=== PATIENT | female | born 1985 | race Caucasian/White ===

== ENCOUNTER 2020-05-22 11:24 | Emergency (ER) | payer OTHER ==
[~2020-05-22] VITALS: Ht 162.6 cm; Wt 86.0 kg
[2020-05-22 11:30] VITALS: BP 150/90
[2020-05-22] MEDS ORDERED: MUPI22OI2 TP (12:20)
[2020-05-22] MEDS ORDERED: SULF1TAB24 PO (12:20)
--- NOTE | 2020-05-22 12:21 | ED.ADGEN ---
Past Medical History Past Medical History: No Pertinent History Past Surgical History: Other Additional Past Surgical Histo: D&C, WIDSOM TEETH Smoking Status: Never Smoker Alcohol Use: Occasionally General Adult EDM: Chief Complaint: ABSCESS HPI: HPI: Patient is a 35 year old female, who presents to the emergency department with complaints of an abscess to the left side of her chin for the last 3 days. Patient denies any drainage or bleeding from the site. She denies any fevers. Patient also denies any dental pain, she states that her chin becomes more marybeth nful if she talks. She currently rates the pain a 10 out of 10 on the pain scale, she denies any alleviating factors, pain is also worse with palpation. Review of Systems: Review of Systems: Complete ROS is negative unless otherwise noted in HPI. Allergies: Allergies: Allergies Coded Allergies Type Severity Reaction Last Updated Verified No Known Drug Allergies 05/22/20 No Physical Exam: PE: See Above Constitutional: Well developed, well nourished, no acute distress, non-toxic appearance. [] HENT: Normocephalic, atraumatic, bilateral external ears normal, nose normal. [] Eyes: PERRLA, EOMI, conjunctiva normal, no discharge. [] Neck: Normal range of motion, no stridor. [] Cardiovascular:Heart rate regular rhythm Lungs & Thorax: Respirations even and unlabored, no retractions, no respiratory distress Skin: Warm, dry; 2 cm diameter nonfluctuant, tender, erythemic warm area consistent with a facial abscess/cellulitis noted to the left side of the patient's chin Extremities: No cyanosis, ROM intact, no edema. [] Neurologic: Alert and oriented X 3, no focal deficits noted. [] Psychologic: Affect normal, judgement normal, mood normal. [] Current Patient Data: Vital Signs: Vital Signs Date Time Temp Pulse Resp B/P (MAP) Pulse Ox O2 Delivery O2 Flow Rate FiO2 05/22/20 11:30 98.7 115 16 150/90 (110) 97 Room Air 98.7 EKG: EKG: [] Heart Score: Risk Factors: Risk Factors: DM, Current or recent (<one month) smoker, HTN, HLP, family history of CAD, obesity. Risk Scores: Score 0 - 3: 2.5% MACE over next 6 weeks - Discharge Home Score 4 - 6: 20.3% MACE over next 6 weeks - Admit for Clinical Observation Score 7 - 10: 72.7% MACE over next 6 weeks - Early Invasive Strategies Radiology/Procedures: Radiology/Procedures: [] Course & Med Decision Making: Course & Med Decision Making Pertinent Labs and Imaging studies reviewed. (See chart for details) [] Laura Disclaimer: Laura Disclaimer: This electronic medical record was generated, in whole or in part, using a voice recognition dictation system. Departure Departure Impression: Primary Impression: Abscess or cellulitis of chin Disposition: 01 DC HOME SELF CARE/HOMELESS Condition: STABLE Patient Instructions: Cellulitis, [id number] Additional Instructions: Fill the prescription(s) and use as directed. You may take tylenol or ibuprofen as needed for pain. Apply warm, moist packs to the area to help decrease discomf ort. Follow up with your primary care doctor or return to the ER in 48 hours to have wound rechecked. Return to the ER sooner if your symptoms worsen. [facility] [address] [place] [address] [facility] [address] [place] [address] [facility] [address] [facility] [place] [address] [facility] [address] [place] [address] [facility] [address] [place] [address] [facility] [address] [place] [address] [facility] [address] [place] [address] [facility] [address] [place] [address] [facility] [address] [place] [address] [facility] [address] [place] [address] Scripts Mupirocin (MUPIROCIN OINTMENT) 22 Gm Oint...g. 1 JENNYFER TP TID for WOUND CARE for 7 Days, #1 TUBE 0 Refills Prov: LUCILLE FLORES ALGOLOGIST 05/22/20 Sulfamethoxazole/Trimethoprim (BACTRIM DS TABLET) 1 Each Tablet 1 TAB PO BID for 10 Days, #20 TAB 0 Refills Prov: LUCILLE FLORES ALGOLOGIST 05/22/20 LUCILLE FLORES ALGOLOGIST May 22, 2020 12:21
== END 2020-05-22 12:40 | disposition home or self-care (01) ==
LOC: ER 11:24
DX: L02.01 Cutaneous abscess of face (principal)
CPT/HCPCS: 99283